=== PATIENT | female | born 1945 | race Caucasian/White ===

== ENCOUNTER 2021-07-02 09:22 | Day surgery (SDC) | payer OTHER ==
[2021-06-21 16:31] LABS: BASOPHILS % (AUTO) 0.6 % (0-1); EOSINOPHILS # (AUTO) 0.1 X10'3 (0-0.9); EOSINOPHILS % (AUTO) 1.2 % (0-6); LYMPHOCYTES # (AUTO) 2.1 X10'3 (1.1-4.8); LYMPHOCYTES % (AUTO) 39.9 % (21-51); MEAN CORPUSCULAR HEMOGLOBIN 29.8 PG (27.0-31.0); MEAN CORPUSCULAR HGB CONC 33.2 g/dL (33.0-36.5); MEAN CORPUSCULAR VOLUME 89.7 FL (78-98); MEAN PLATELET VOLUME 7.6 FL (7.4-10.4); MONOCYTES # (AUTO) 0.3 X10'3 (0-0.9); MONOCYTES % (AUTO) 6.4 % (2-12); NEUTROPHILS # (AUTO) 2.7 X10'3 (1.8-7.7); NEUTROPHILS % (AUTO) 51.9 % (42-75); PRE OP HEMATOCRIT 38.3 % (35.0-45.0); PRE OP HEMOGLOBIN 12.7 g/dL (12.0-16.0); PRE OP PLATELET COUNT 208 X10'3 (140-440); RED BLOOD COUNT 4.27 X10'6 (4.20-5.60); RED CELL DISTRIBUTION WIDTH 13.8 % (11.5-14.5)
[2021-06-21 16:56] LABS: ALBUMIN 3.8 G/DL (3.4-5.0); ALKALINE PHOSPHATASE 127 IU/L (46-116); BLOOD UREA NITROGEN 28 MG/DL (7-18); BUN/CREATININE RATIO 18.5 (6.6-38.0); CALCIUM 9.1 MG/DL (8.5-10.1); CHLORIDE 108 MMOL/L (99-107); CREATININE 1.51 MG/DL (0.40-0.90); PRE OP ALT 28 U/L (30-65); PRE OP ANION GAP 12 (8-16); PRE OP AST 29 U/L (10-37); PRE OP BILIRUB, TOTAL 0.3 MG/DL (0.0-1.0); PRE OP GLUCOSE 106 MG/DL (70-104); PRE OP POTASSIUM 4.8 MMOL/L (3.4-5.1); PRE OP SODIUM 144 MMOL/L (135-145); TOTAL CARBON DIOXIDE 23.9 MMOL/L (24-32); TOTAL PROTEIN 7.5 G/DL (6.4-8.2); eGFR 34 ML/MIN
[2021-07-02] VITALS (11 sets, daily range): BP systolic 144–192; BP diastolic 64–91
[~2021-07-02] VITALS: Ht 165.1 cm; Wt 72.9 kg
[~2021-07-02 09:22] MED LIST: ATOR40TA72 PO; DAPA10TA PO; LEVO50TA8 PO; LISI20TA28 PO; MEMA10TA56 PO; RIVA1PAT11 TOP; SERT-433 PO; ceFAZolin 2gm in dextrose, iso 50 ML IV ONE; famotidine 20mg tablet PO ONE; ringers solution, lacted 1,000 ML IV SCH
[2021-07-02] MEDS ORDERED: proCHLORperazine 10 MG/2 ml inj IV PRN (11:15)
[2021-07-02] MEDS ORDERED: ringers solution, lacted 1,000 ML IV SCH (11:15)
[2021-07-02] MEDS ORDERED: morphine 4 MG/ML inj SYRINge IV PRN (11:15)
[2021-07-02] MEDS ORDERED: hydrALAZINE 20mg/ml inj. IV PRN (11:15)
[2021-07-02] MEDS ORDERED: ondansetron/PF 4mg/2ml inj IV PRN (11:15)
[2021-07-02] MEDS ORDERED: acetaminophen 1,000mg/100ml IV 100 ML IV PRN (11:15)
[2021-07-02] MEDS ORDERED: meperidine/PF 25mg/ml syringe IV PRN (11:15)
[2021-07-02] MEDS ORDERED: morphine 2 MG/ML inj. syringe IV PRN (11:15)
[2021-07-02] MEDS ORDERED: labetalol 20mg/4ml (5mg/ml) syringe IV PRN (11:15)
[2021-07-02] MEDS ORDERED: HYDROmorphone/PF 0.2 MG/ML SYRINGE IV PRN ×2 (11:15)
[2021-07-02] MEDS ORDERED: BUPIVAcaine 0.5% inj/PF 30 ML ONE (13:12)
[2021-07-02] MEDS ORDERED: LIDOcaine 0.5% W/epiNEPHrine 1:200,000 50ml vial IJ ONE (13:13)
[2021-07-02] MEDS ORDERED: LIDOcaine 0.5% (5mg/ml) 50ml vial ONE (13:15)
[2021-07-02] MEDS ORDERED: midazolam 1 mg/ML 2ml injection ONE (13:25)
[2021-07-02] MEDS ORDERED: fentaNYL/PF 50MCG/1 ML 2ML syringe ONE (13:25)
[2021-07-02] MEDS ORDERED: propofol inj 20 ML IV ONE (13:34)
[2021-07-02] MEDS ORDERED: BUPIVAcaine 0.5% inj/PF 30 ml vial IJ ONE (13:43)
--- NOTE | 2021-07-02 14:15 | NUR ---
Received from OR via [facility], accompanied by Anesthesiologist DR FAULKNER and report given by Anesthesiologist AND CODING SPECIALIST. PT DROWSY, DENIES PAIN, RIGHT HAND/WRIST W/BIAS WRAP COVERING INCISION/DRSG CDI. 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 Addendum: 07/02/21 at 1451 by Nora Garcia RN Amended: Links added.
[2021-07-02] MEDS ORDERED: lisinopril 20mg tablet PO ONE (15:10)
--- NOTE | 2021-07-02 16:00 | NUR ---
PT COMFORTABLE, DENIES PAIN, IS ABLE TO AMBULATE SAFELY. D/C INSTRUCTIONS GIVEN AND GONE OVER W/PT AND PTS WHO VERBALIZED UNDERSTANDING. PT D/CD TO HOME VIA W/C TO PRIVATE VEHICLE W/O INCIDENT. Addendum: 07/02/21 at 1615 by Nora Garcia RN Amended: Links added.
== END 2021-07-02 16:00 | disposition home or self-care (01) ==
LOC: PAS 09:22
PROVIDERS: ATTEND Orthopaedic Surgery Hand Surgery
DX: M18.11 Unilateral primary osteoarthritis of first carpometacarpal joint, right hand (principal); I10 Essential (primary) hypertension; E11.9 Type 2 diabetes mellitus without complications; F32.9 Major depressive disorder, single episode, unspecified; G30.9 Alzheimer's disease, unspecified; F02.80 Dementia in other diseases classified elsewhere, unspecified severity, without behavioral disturbance, psychotic disturbance, mood disturbance, and anxiety; Z20.822 Contact with and (suspected) exposure to COVID-19; Z79.899 Other long term (current) drug therapy; Z90.710 Acquired absence of both cervix and uterus; Z98.84 Bariatric surgery status; Z90.49 Acquired absence of other specified parts of digestive tract; Z98.890 Other specified postprocedural states
CPT/HCPCS: 25310; 25447; 36415; 80053; 82948; 85025; J0360; J2001; J2250; J2704; J3010; J7120; U0003; U0005; Z7506; Z7512; A4215; A4618; A7000